=== PATIENT | male | born 1940 | race Caucasian/White ===

== ENCOUNTER 2016-10-03 12:35 | Outpatient (CLI) | payer OTHER, MEDICARE ==
--- NOTE | 2016-10-03 14:04 | DIAGNOSTIC IMAGING REPORT ---
PROCEDURE: XR KNEE 3 VIEWS - LEFT INDICATION: PAIN TECHNIQUE: Three views. COMPARISON: None. FINDINGS: Patellofemoral osteoarthritis with lateral joint space narrowing and osteophyte formation. IMPRESSION: 1. Patellofemoral osteoarthritis.
== END 2016-10-03 23:00 ==
LOC: XR SRH 12:35
DX: M17.12 Unilateral primary osteoarthritis, left knee (principal)